=== PATIENT | female | born 1980 | race Caucasian/White ===

== ENCOUNTER → 2019-01-01 | Outpatient (CLI) | payer MEDICARE ==
[~2019-01-01] MED LIST: ACCUTANE PO; IRON PO; KEPPRA1000 MG PO; MULTI-VITAMIN1 EACH PO; ZYRTEC10 MG PO
--- NOTE | 2019-01-01 14:33 | Diagnostic Imaging Report ---
EXAM: Renal Ultrasound INDICATION: ^[id number] ^[id number] ^[facility] COMPARISON: Renal ultrasound of 01/05/2015 TECHNIQUE: Transverse and longitudinal images of the kidneys and bladder were obtained. FINDINGS: Right Kidney: Length: 9.7 cm Appearance: Normal echogenicity. Collecting system: No hydronephrosis Stones: None Cyst/Mass: None Left Kidney: Length: 11.7 cm Appearance: Normal echogenicity. Collecting system: No hydronephrosis Stones: None Cyst/Mass: None Bladder: No mass or calculi. Bilateral ureteral jets seen. Prevoid volume estimate of 719.6 cc Incidental note is made of hyperechoic liver parenchyma. IMPRESSION: No renal calculi or hydronephrosis. Hepatic steatosis. Signed by: Kelsy Aguayo MD on 01/01/2019 2:29 PM
== END ==
LOC: US 12:59
PROVIDERS: ATTEND Urology
DX: N39.0 Urinary tract infection, site not specified (principal)
CPT/HCPCS: 76770